=== PATIENT | male | born 1950 ===

== ENCOUNTER → 2018-05-14 | Day surgery (SDC) | payer MEDICARE, OTHER ==
[~2018-05-14] MED LIST: Absorbable Gelatin Sponge Size 12-7 ONE; Lactated Ringer's 1,000 ML IV ONE; Lidocaine 1% Inj (20ml) ONE; Midazolam 2 MG/2 ML VIAL ONE
[2018-05-14 09:33] VITALS: BMI 31.1
--- NOTE | 2018-05-14 12:47 | CP.SDSHP ---
Same Day Surgery H & P - History Proposed Procedure: US guided liver biopsy Pre-Op Diagnosis: Abnormal LFTs - Allergies Allergies: Allergies No Known Allergies Allergy (Verified 05/14/18 09:42) - Physical Exam Vital Signs: Vital Signs 05/14/18 05/14/18 05/14/18 10:09 10:15 11:16 Temperature 98.6 F 98.8 F Pulse Rate 72 72 68 Respiratory 18 16 Rate Blood Pressure 153/85 H 139/66 O2 Sat by Pulse 97 99 Oximetry Mental Status: Alert & Oriented x3 Neuro: WNL Heart: WNL Lungs: WNL - Impression Impression: Pt with abnormal LFTs referred for liver biopsy. Plan US guided liver biopsy. Informed consent obtained. Pt. Evaluated Today:Candidate for Anesthesia & Procedure: Yes (ASA 3 Malampati 2) - Date & Time Date: 05/14/18 Time: 12:25 Short Stay Discharge - Short Stay Discharge Admitting Diagnosis/Reason for Visit: K70.30 Disposition: HOME/ ROUTINE
--- NOTE | 2018-05-14 12:49 | PCM.SURG1 ---
Surgeon's Initial Post Op Note - Surgeon's Notes Surgeon: Jovany Alvares MD Manager Clinical: NONE Type of Anesthesia: IV Sedation Pre-Operative Diagnosis: Abnormal LFTs Operative Findings: US showed an unremarkable liver Post-Operative Diagnosis: Abnormal LFTs Operation Performed: US guided liver biopsy. Specimen/Specimens Removed: 18 g core x 3 Estimated Blood Loss: EBL {In ML}: 2 Blood Products Given: N/A Drains Used: No Drains Post-Op Condition: Good Date of Surgery/Procedure: 05/14/18 Time of Surgery/Procedure: 12:40
[2018-05-14 14:18] VITALS: RESP 18; O2SAT 100
[2018-05-14 14:43] VITALS: BP 128/76; PULSE 63; TEMP 98.2
--- NOTE | 2018-05-16 10:43 | US ---
PROCEDURE: Date of procedure: 05/14/2018 Procedure: 1. Ultrasound-guided core liver biopsy, CPT 43582 2. Ultrasound guidance for biopsy, [id number] Medications: The patient is sedated by the anesthesiologist. HISTORY: Abnormal LFTs TECHNIQUE: Following informed consent and procedure time-out, the patient was placed supine on bed and limited ultrasound showed a normal appearing left hepatic lobe. After patient abdomen was prepped and draped in the usual sterile fashion and the skin was anesthetized with 2% lidocaine, an 18 gauge core needle was advanced percutaneously under direct ultrasound guidance into the left hepatic lobe. Upon confirmation of needle position, three 18 gauge core specimens were obtained and sent for routine pathology. The biopsy to tract was then embolized with Gelfoam. A post biopsy ultrasound showed no hematoma. A dressing was applied. IMPRESSION: Ultrasound-guided core biopsy left hepatic lobe. There were no immediate complications.
== END | disposition home or self-care (01) ==
LOC: H.OPSURG 09:08
PROVIDERS: ATTEND Internal Medicine Gastroenterology
DX: K70.30 Alcoholic cirrhosis of liver without ascites (principal); E11.9 Type 2 diabetes mellitus without complications; E78.5 Hyperlipidemia, unspecified; I10 Essential (primary) hypertension
CPT/HCPCS: 47000; 82948; 88307; A4310; J2250; J3010; J7120